=== PATIENT | female | born 1975 ===

== ENCOUNTER → 2020-12-28 | Outpatient (CLI) | payer BC ==
[2021-01-01 10:44] LABS: Candida species (DNA Probe) Negative (NEGATIVE); G. vaginalis (DNA Probe) Negative (NEGATIVE); T. vaginalis (DNA Probe) Negative (NEGATIVE)
== END ==
LOC: LAB SHORT 09:42
PROVIDERS: Family Medicine
DX: N89.8 Other specified noninflammatory disorders of vagina (principal)
CPT/HCPCS: 87480; 87510; 87660

== ENCOUNTER → 2025-01-02 | Outpatient (CLI) | payer BC | LOC: LAB SHORT 11:45 → LAB 11:45 | PROVIDERS: Family Medicine | DX: Z01.419 Encounter for gynecological examination (general) (routine) without abnormal findings (principal) | CPT/HCPCS: 87624; G0145 ==